=== PATIENT | male | born 1960 | race African-American/Black ===

== ENCOUNTER 2018-08-19 09:32 | Day surgery (SDC) | payer BC ==
[~2018-08-19] VITALS: Ht 162.6 cm; Wt 78.0 kg
[~2018-08-19 09:32] MED LIST: ASPIRIN81 MG PO; CARVEDILOL3.125 MG PO; FERRAPLUS 90 PO; LISINOP/HCTZ1 TA1 PO; LISINOPRIL20 MG PO; NITROSTAT0.3 MG SL; RANITIDINE150 M1 PO; VITAMIN C500 M6 PO
[2018-08-19 13:18] VITALS: BP 119/76
== END 2018-08-19 13:31 | disposition home or self-care (01) | DRG 393 ==
LOC: ENDO 09:32
PROVIDERS: ATTEND Internal Medicine Gastroenterology
PROC: 0DB48ZX Excision of Esophagogastric Junction, Via Natural or Artificial Opening Endoscopic, Diagnostic (ICD-10-PCS; principal; 2018-08-19)
PROC: 0DB78ZX Excision of Stomach, Pylorus, Via Natural or Artificial Opening Endoscopic, Diagnostic (ICD-10-PCS; 2018-08-19)
PROC: 0DBK8ZX Excision of Ascending Colon, Via Natural or Artificial Opening Endoscopic, Diagnostic (ICD-10-PCS; 2018-08-19)
DX: K63.5 Polyp of colon (principal); K64.8 Other hemorrhoids; K64.4 Residual hemorrhoidal skin tags; K29.61 Other gastritis with bleeding; K25.4 Chronic or unspecified gastric ulcer with hemorrhage; K21.9 Gastro-esophageal reflux disease without esophagitis; K22.70 Barrett's esophagus without dysplasia; K44.9 Diaphragmatic hernia without obstruction or gangrene; K31.9 Disease of stomach and duodenum, unspecified; I10 Essential (primary) hypertension; Z86.010 Personal history of colon polyps